=== PATIENT | female | born 1985 | race Caucasian/White ===

== ENCOUNTER 2020-04-19 12:22 | Emergency (ER) | payer BC, MEDICAID ==
[~2020-04-19] VITALS: Ht 162.6 cm; Wt 80.0 kg
[~2020-04-19 12:22] MED LIST: FAMO-128 PO
[2020-04-19] MEDS ORDERED: CYCL-1 PO (17:25)
[2020-04-19 17:28] VITALS: BP 140/93
== END 2020-04-19 17:28 | disposition home or self-care (01) ==
LOC: ER 12:22
DX: F07.81 Postconcussional syndrome (principal); R51 Headache; F17.200 Nicotine dependence, unspecified, uncomplicated; Z72.89 Other problems related to lifestyle; Z88.0 Allergy status to penicillin; Z79.899 Other long term (current) drug therapy; W18.2XXA Fall in (into) shower or empty bathtub, initial encounter; Y93.89 Activity, other specified; Y92.89 Other specified places as the place of occurrence of the external cause; Y99.8 Other external cause status
CPT/HCPCS: 70450; 99284

== ENCOUNTER 2023-12-03 15:34 | Emergency (ER) | payer MEDICAID, BC ==
[~2023-12-03] VITALS: Ht 162.6 cm; Wt 84.1 kg
[~2023-12-03 15:34] MED LIST changes: +CYCL-1 PO
[2023-12-03 16:10] VITALS: BP 173/100; PULSE 90; RESP 16; TEMP 98.4; O2SAT 97
== END 2023-12-03 17:22 | disposition home or self-care (01) ==
LOC: ER 15:35
DX: S06.0X0A Concussion without loss of consciousness, initial encounter (principal); X58.XXXA Exposure to other specified factors, initial encounter; Y93.89 Activity, other specified; Y92.89 Other specified places as the place of occurrence of the external cause; Y99.8 Other external cause status
CPT/HCPCS: 70450; 99284